=== PATIENT | male | born 1970 | race Caucasian/White ===

== ENCOUNTER 2022-12-27 15:11 | Outpatient (RCR) | payer BC, SELFPAY | END 2023-03-13 12:42 | disposition home or self-care (01) | PROVIDERS: PCP Family Medicine; Visit Provider Internal Medicine | DX: M54.50 Low back pain, unspecified (principal); M62.81 Muscle weakness (generalized); Z51.89 Encounter for other specified aftercare | CPT/HCPCS: 97162; 97530 ==

== ENCOUNTER 2023-06-28 14:29 | Emergency (ER) | payer BC, SELFPAY ==
[2023-06-28 14:35] VITALS: BP 126/83; PULSE 84; RESP 16; TEMP 36.3; O2SAT 98; BMI 23.6
--- NOTE | 2023-06-28 16:05 | CRLHL7_ITS ---
For Patients: As a result of the Century Cures Act, medical imaging exams and procedure reports are released immediately into your electronic medical record. You may view this report before your referring provider. If you have questions, please contact your health care provider. INDICATION: Left lower quadrant pain. TECHNIQUE: CT abdomen and pelvis acquired with 64 cc Isovue 370 IV contrast. COMPARISON: None. FINDINGS: Lower chest: Unremarkable. Liver: Unremarkable. Normal in size and attenuation. No suspicious masses. Gallbladder and bile ducts: Unremarkable. No stones or inflammation. No biliary dilatation. Pancreas: Unremarkable. No mass or inflammation. Spleen: Unremarkable. Normal in size. No masses. Adrenal glands: Unremarkable. No nodules. Kidneys: Unremarkable. No suspicious masses, stones, or hydronephrosis. GI tract: Acute sigmoid colonic diverticulitis. No bowel obstruction. Normal appendix. Moderate colonic stool burden. Vasculature: Abdominal aorta is normal in caliber. Mesenteric arteries are patent. Lymph nodes: No lymphadenopathy. Peritoneum/Abdominal Wall: Unremarkable. No sign of mass or infiltration. No free air or significant free fluid. Pelvis: Unremarkable. Bones: Unremarkable for age. IMPRESSION: Acute uncomplicated sigmoid diverticulitis. No drainable fluid collections. Given circumferential wall thickening, recommend repeat CT scan after treatment/resolution of symptoms. Alternatively, colonoscopy could be performed if not recently done so. Please note that all CT scans at this facility use dose modulation, iterative reconstruction, and/or weight-based dosing when appropriate to reduce radiation dose to as low as reasonably achievable. Dictated by Juma Armando MD @ 06/28/2023 6:11:16 PM (Electronically Signed)
--- NOTE | 2023-06-28 16:06 | ED.ABDPAIN ---
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 He states the diff; for the past few days and was getting worse today so he went to urgent care to be evaluated. There he had a slightly elevated white count of 13 and sent to the emergency department for CT scan for concern of diverticulitis. Analysis states it looks like his urinalysis showed possible UTI per the cannot culture hit at urgent care. Patient states he has never had pain like this before. He has never had a colonoscopy. Denies fevers, chills, dysuria, melena, hematochezia, chest pain, shortness of breath, lightheadedness, dizziness. No other concerns noted at this time Related Data Home Medications Medication Instructions Recorded Confirmed No Known Home Medications 06/28/23 06/28/23 Allergies Allergy/AdvReac Type Severity Reaction Status Date / Time No Known Drug Allergies Allergy Verified 06/28/23 16:59 Review of Systems Status of ROS Reports: 10 or more systems reviewed and unremarkable except as noted in History and below [facility] Medical History Back Pain ?M54.9 - Dorsalgia, unspecified (ICD-10) Social History Smoking Status: Never smoker Do you use any of these nicotine containing products: None Second hand tobacco smoke exposure: No How often do you have a drink containing alcohol: never AUDIT-C Alcohol total score: 0 Non-prescribed substance use: marijuana (any form) Exam Narrative: Exam Narrative: Const: Well-nourished, Well-developed, in mild distress Eyes: PERRL, no conjunctival injection, and symmetrical lids HENT: Atraumatic external nose and ears. Moist mucous membranes. Neck: Symmetric, trachea midline, No thyromegaly. CVS: RRR, No murmurs or gallops. Peripheral pulses 2+ and equal in all extremities RESP: Unlabored respiratory effort. Clear to auscultation bilaterally. GI: Left lower quadrant tenderness, Nondistended, No rebound or guarding. MSK:Extremities w/o deformity, Normal Active ROM Skin: Warm, Dry. No rashes or lesions. Neuro: Normal Muscle tone, No focal neurological deficits other than the chronic left facial nerve palsy Psych: Awake, Alert, & Oriented x3. Appropriate mood and affect. Const: Vital Signs, click to edit/add: Vital Signs - 24 hr 06/28/23 14:35 06/28/23 17:54 Temperature 97.4 F L Pulse Rate 68 Pulse Rate [Pulse Oximeter] 84 Respiratory Rate 16 14 Blood Pressure 120/78 Blood Pressure [Ri ght Upper Arm] 126/83 Pulse Oximetry 98 98 Oxygen Delivery Me thod Room Air Course Vital Signs Vital signs: Initial Vital Signs Temperature 97.4 F L 06/28/23 14:35 Temperature Source Temporal Artery Scan 06/28/23 14:35 Pulse Rate 84 06/28/23 14:35 Respiratory Rate 16 06/28/23 14:35 Blood Pressure 126/83 06/28/23 14:35 Blood Pressure Mean 97 06/28/23 14:35 Blood Pressure Position Sitting 06/28/23 14:35 Pulse Oximetry 98 06/28/23 14:35 Oxygen Delivery Method Room Air 06/28/23 14:35 Vital Signs Temperature 97.4 F L 06/28/23 14:35 Pulse Rate 84 06/28/23 14:35 Respiratory Rate 16 06/28/23 14:35 Blood Pressure 126/83 06/28/23 14:35 Pulse Oximetry 98 06/28/23 14:35 Oxygen Delivery Method Room Air 06/28/23 14:35 Temperature 97.4 F L 06/28/23 14:35 Pulse Rate 68 06/28/23 17:54 Respiratory Rate 14 06/28/23 17:54 Blood Pressure 120/78 06/28/23 17:54 Pulse Oximetry 98 06/28/23 17:54 Oxygen Delivery Method Room Air 06/28/23 14:35 Medications Administered Medications: Discontinued Medications Generic Name Dose Route Start Last Admin Trade Name Freq PRN Reason Stop Dose Admin Morphine Sulfate 4 mg 06/28/23 16:04 06/28/23 16:21 Morphine 4 Mg/Ml Inj IVP 06/28/23 16:05 4 mg ONCE ONE Administration MDM - Abdominal Pain MDM Narrative Medical decision making narrative: Patient is a 53-year-old male presenting for left lower quadrant abdominal pain. Symptoms ongoing for the past 2 days. Has never had a colonoscopy before. There is concern for diverticulitis. There was concern from urgent care also for a UTI. Seems unlikely to be a mass lesion now with diarrhea or constipation. No blood in his stool. Has had normal bowel movement the also unlikely to be an SBO. No previous abdominal surgeries. Will order CT scan of the abdomen with IV contrast. Also ordered COVID/flu, CBC, CMP, urinalysis, lipase. Patient was given morphine for pain. He states he feels well hydrated and does not think he needs any fluids. Is not having any nausea at this time Lab work returns slightly elevated white count of 12.12. He meets no other SIRS criteria so septic workup was not necessary. CT scan shows acute uncomplicated diverticulitis which is consistent with his symptoms. Urinalysis shows no signs of UTI and COVID/flu swab is negative. Patient was started on antibiotics. Was informed to follow both patient. He is agreeable to this plan. Lab Data Labs: Lab Results 06/28/23 06/28/23 Range/Units 16:20 16:30 WBC 12.12 H (4.50-11.00) K/uL RBC 5.42 (4.30-5.90) m/uL Hgb 16.1 (13.5-17.5) gm/dL Hct 47.5 (37.0-53.0) % MCV 88 (80-100) fL MCH 30 (26-34) pg MCHC 34 (32-36) gm/dL RDW Coeff of Sukhwinder 12.6 (11.5-15.5) % Plt Count 209 (140-440) K/uL Neut % (Auto) 76.4 H (42.0-72.0) % Lymph % (Auto) 16.3 L (20-44) % [place] % (Auto) 6.0 (0.0-11.0) % Eos % (Auto) 0.4 (0.0-7.0) % Baso % (Auto) 0.2 (0.0-3.0) % Neut # (Auto) 9.30 H (1.7-7.0) K/uL Lymph # (Auto) 2.00 (0.90-2.90) K/uL [place] # (Auto) 0.70 (0.00-0.90) K/UL Eos # (Auto) 0.00 (0.00-0.50) K/uL Baso # (Auto) 0.00 (0.00-0.30) K/uL Abs Immat Gran (auto) 0.10 (0.00-0.30) K/uL Imm/Tot Granulo (auto) 0.7 % Sodium 137 (135-149) mmol/L Potassium 4.0 (3.6-5.1) mmol/L Chloride 101 (96-114) mmol/L Carbon Dioxide 26 (20-32) mmol/L Anion Gap 10 (7-15) mEq/L BUN 14 (7-30) mg/dL Creatinine 1.0 (0.5-1.5) mg/dL Estimated Creat Clear 82.65 Estimated GFR 90 ml/min Glucose 112 (60-115) mg/dL Calcium 9.5 (8.4-10.6) mg/dL Total Bilirubin 1.5 (0.1-1.5) mg/dL AST 24 (12-35) U/L ALT 17 (4-50) U/L Alkaline Phosphatase 79 (40-150) U/L Total Protein 8.0 (6.0-8.3) g/dL Albumin 4.9 (3.3-5.0) g/dL Lipase 58 (23-300) U/L Urine Color Yellow (Yellow) Urine Appearance Clear (Clear) Urine pH 5.5 (5.0-8.5) Ur Specific [place] >= 1.030 (1.000-1.030) Urine Protein Trace A (Negative) Urine Glucose (UA) Negative (Negative) Urine Ketones 2+ A (Negative) Urine Blood Negative (Negative) Urine Nitrite Negative (Negative) Urine Bilirubin 1+ A (Negative) Urine Urobilinogen 0.2 (0.2-1.0) Ur Leukocyte Esterase Negative (Negative) Urine RBC 0-2 (0-2) Urine WBC 0-2 (0-5) Ur Squamous Epith Cells None (None-Few) Urine Bacteria None (None) SARS-CoV-2 (PCR) Negative SARS-CoV-2 (Negative) Influenza Type A (PCR) Negative PCR FLU A (Negative) Influenza Type B (PCR) Negative PCR FLU B (Negative) Imaging Data CT scan abdomen and pelvis: Radiologist's impression: Acute uncomplicated sigmoid diverticulitis. No drainable fluid collections. Given circumferential wall thickening, recommend repeat CT scan after treatment/resolution of symptoms. Alternatively, colonoscopy could be performed if not recently done so. Please note that all CT scans at this facility use dose modulation, iterative reconstruction, and/or weight-based dosing when appropriate to reduce radiation dose to as low as reasonably achievable. Dictated by Juma Armando MD @ 06/28/2023 6:11:16 PM Discharge Plan Discharge Clinical Impression: Diverticulitis Patient Disposition: Home, Self-Care Condition: Improved Instructions: Diverticulitis (ED) Additional Instructions: Is recommended you follow-up with your primary care provider for repeat CT for possible scheduling a colonoscopy after symptoms resolve. Take the Augmentin as prescribed any can pick it up from [facility]. Take the Augmentin every 8 hours for 5 days. Incorrect frequency and length of treatment was put in prescription. Zofran was also sent to [facility]. Return to emergency department for new or worsening symptoms. Prescriptions: No Action No Known Home Medications Follow Up/Referrals: Mina Strickland MD [Primary Care Provider] - Stand Alone Forms: LikeList Info Instructions
[2023-06-28] MEDS: MORPHINE 4 MG/ML INJ IVP (16:21)
[2023-06-28 16:29] LABS: Basophils Percent Auto 0.2 % (0.0-3.0); Eosinophils Percent Auto 0.4 % (0.0-7.0); Hematocrit 47.5 % (37.0-53.0); Hemoglobin* 16.1 gm/dL (13.5-17.5); Immature Granulocytes Pct Auto 0.7 %; Lymphocytes Percent Auto 16.3 % (20-44); Mean Corpuscular HGB Conc 34 gm/dL (32-36); Mean Corpuscular Hemoglobin 30 pg (26-34); Mean Corpuscular Volume 88 fL (80-100); Neutrophils Percent Auto 76.4 % (42.0-72.0); Platelet Count* 209 K/uL (140-440); RDW Coefficient of Variation % 12.6 % (11.5-15.5); Red Blood Count 5.42 m/uL (4.30-5.90); White Blood Count* 12.12 K/uL (4.50-11.00)
[2023-06-28 16:37] LABS: Slide Review Reflex No
[2023-06-28 16:40] LABS: Appearance Urine Clear (Clear); Bilirubin Urine 1+ (Negative); Blood Urine Negative (Negative); Color Urine Yellow (Yellow); Glucose Urine Negative (Negative); Ketones Urine 2+ (Negative); Leukocyte Esterase Urine Negative (Negative); Nitrite Urine Negative (Negative); Protein Urine Trace (Negative); Specific Gravity Urine >= 1.030 (1.000-1.030); Urobilinogen Urine 0.2 (0.2-1.0); pH Urine 5.5 (5.0-8.5)
[2023-06-28 16:49] LABS: Albumin* 4.9 g/dL (3.3-5.0); Chloride* 101 mmol/L (96-114)
[2023-06-28 16:50] LABS: Sodium* 137 mmol/L (135-149)
[2023-06-28 16:52] LABS: Alkaline Phosphatase* 79 U/L (40-150); Anion Gap 10 mEq/L (7-15); Aspartate Amino Transferase* 24 U/L (12-35); Bilirubin Total* 1.5 mg/dL (0.1-1.5); Blood Urea Nitrogen* 14 mg/dL (7-30); Carbon Dioxide* 26 mmol/L (20-32); Est. Creatinine Clearance* 82.65; Estimated Glomerular Filt Rate 90 ml/min; Lipase* 58 U/L (23-300)
[2023-06-28 16:53] LABS: Alanine Aminotransferase* 17 U/L (4-50); Calcium* 9.5 mg/dL (8.4-10.6); Glucose* 112 mg/dL (60-115)
[2023-06-28 16:56] LABS: RBC Urine 0-2 (0-2); WBC Urine 0-2 (0-5)
[2023-06-28 17:08] LABS: PCR FLU A Negative PCR FLU A (Negative); PCR FLU B Negative PCR FLU B (Negative); SARS PCR* Negative SARS-CoV-2 (Negative)
[2023-06-28 17:54] VITALS: BP 120/78; PULSE 68; RESP 14; O2SAT 98
[2023-06-28 18:48] VITALS: BP 126/83; PULSE 84; RESP 14; TEMP 36.3
== END 2023-06-28 18:48 | disposition home or self-care (01) ==
PROVIDERS: Emergency Provider Student in an Organized Health Care Education/Training Program; PCP Family Medicine
DX: K57.32 Diverticulitis of large intestine without perforation or abscess without bleeding (principal)
CPT/HCPCS: 36415; 74177; 80053; 81001; 83690; 85025; 87086; 87631; 96374; 99283; 99284; J2270; Q9967